=== PATIENT | male | born 1970 ===

== ENCOUNTER 2017-06-08 09:11 | Day surgery (SDC) | payer MEDICARE ==
--- NOTE | 2017-06-08 07:58 | HP ---
DATE OF SURGERY: 06/08/2017 HISTORY OF PRESENT ILLNESS: The patient is a 47 year-old with issues with bowel problems in [facility] seen by Dr. Avendaño. Even more recently he had enlarging lesion on his base of neck, shoulder area as well as a leg lesion and desires excision now at a later date. He is in need of colonoscopy. He has had some chronic bowel problems. PAST MEDICAL HISTORY: He had some developmental delay and bowel issues. PAST SURGICAL HISTORY: He had some surgery for eyelid when he was a child. MEDICATIONS: Reportedly none currently. ALLERGIES: NKDA. FAMILY HISTORY: Heart disease, testicular cancer reportedly. SOCIAL HISTORY: No smoking or alcohol abuse. REVIEW OF SYSTEMS: Chronic bowel problem. Twelve systems reviewed per admission assessment. No chest pain or palpitations other systems negative or noncontributory as above and per preadmission questionnaire. PHYSICAL EXAMINATION: GENERAL: No acute distress. HEENT: Sclerae nonicteric. NECK: No JVD. Base of his neck exophytic lesion of indeterminate origin. CHEST: Equal excursion, nonlabored breathing. CVS: Regular rate and rhythm. ABDOMEN: Soft, nondistended. EXTREMITIES: No significant edema. He has leg lesion of indeterminate etiology. NEURO: Alert, moving extremities grossly symmetrically. IMPRESSION: He has lesion base of neck and leg in need of excision undetermined in origin and enlarging. Risks and benefits explained in detail including but not limited to bleeding or infection, risk of wound dehiscence possibly requiring packing, general risk of aches, pains, burning, numbness, possibility that he may need to have procedure with wide excision. General risk of anesthesia or sedation but not limited to. Consent was obtained. Will proceed with excisional biopsy base of the neck lesion as well as leg lesion as an outpatient. At a later date if he has chronic bowel problems originally seen by Dr. Avendaño in the hospital, I feel he would benefit from colonoscopy. Risks and benefits explained in detail but not limited to bleeding, infection, risk of bowel injury or perforation possibly requiring open procedure, risk of missed or nondiagnosis or incomplete exam possibly requiring barium enema, other studies or procedures, general risk of anesthesia or sedation but not limited to. He understands and agrees to the planned procedure, consent obtained, will proceed with first excision of lesions as outpatient at a later date the colonoscopy.
[2017-06-08] MEDS ORDERED: DIPRIVAN 200 MG/20 ML IV ONE (09:12)
[2017-06-08] MEDS ORDERED: Lactated Ringers 1,000 ML IV SCH (10:00)
[2017-06-08 11:39] VITALS: O2SAT 100
[2017-06-08 12:15] VITALS: PULSE 64
[2017-06-08 12:20] VITALS: BP 132/73
--- NOTE | 2017-06-08 15:38 | OP ---
SURGERY DATE/TIME: 06/08/2017 1044 PREOPERATIVE DIAGNOSIS: History of change in bowel habits, increasing diarrhea, prior history of question internal hernia or volvulus on past hospital visit at [facility], need for colonoscopy. POSTOPERATIVE DIAGNOSES: 1) Somewhat poor prep limiting colon exam. 2) Very tortuous colon. 3) Small internal and external hemorrhoids. 4) Mild colon erythema versus prep irritation evaluate for microscopic colitis. PROCEDURES: Colonoscopy to what appeared to be the cecal area with random cold biopsies of the colon to evaluate for microscopic colitis. SURGEON: Dr. Delano Carrera. ANESTHESIA: MAC. ESTIMATED BLOOD LOSS: Minimal. INDICATIONS: As noted above. Risks and benefits explained in detail but not limited to and consent obtained. DESCRIPTION OF PROCEDURE AND FINDINGS: The patient is taken to the operating room. MAC anesthesia introduced. After official time out and no disagreement with planned procedure, digital rectal exam did not reveal any rectal masses. He did have some internal and external hemorrhoids. Video colonoscope inserted and passed up the tortuous sigmoid, descending and transverse colon. With external pressure and positioning on his back with two staff members applying external pressure, the scope was able to be passed around the ascending colon to the right lower quadrant to what was felt to be probably the cecum. Prep overall was somewhat poor thick in the right colon limiting the exam for small lesions. It was suction irrigated out as well as possible but did limited the exam for small lesions. There were no signs of any large polyps, masses or obstructing lesions. The scope is slowly and carefully withdrawn. He had problems with diarrhea. It was felt as he had some mild erythema of the colon whether this is simple prep irritation versus microscopic colitis cold biopsy taken to evaluate for microscopic colitis. Otherwise there are no signs of any large polyps, masses or obstructing lesions. He had some small internal and external hemorrhoids. There were no signs of any large polyps or obstructing lesions. Again the prep did limit the exam for small lesions. The scope is withdrawn. There was no family or friends available to discuss the findings with out in the waiting area. The patient additionally had a prior barium enema around to the cecum. It did not show any obvious masses but did show that he had a redundant colon.
== END 2017-06-08 12:10 | disposition home or self-care (01) ==
LOC: SDC 09:11
PROVIDERS: ATTEND Surgery
PROC: 0DBP8ZX Excision of Rectum, Via Natural or Artificial Opening Endoscopic, Diagnostic (ICD-10-PCS; principal; 2017-06-08)
PROC: 0DBE8ZX Excision of Large Intestine, Via Natural or Artificial Opening Endoscopic, Diagnostic (ICD-10-PCS; 2017-06-08)
DX: R19.4 Change in bowel habit (principal); R19.7 Diarrhea, unspecified; Q43.8 Other specified congenital malformations of intestine; K64.4 Residual hemorrhoidal skin tags; K64.8 Other hemorrhoids; L53.9 Erythematous condition, unspecified
CPT/HCPCS: 00812; 88305; J2704

== ENCOUNTER 2017-06-15 08:53 | Day surgery (SDC) | payer MEDICARE ==
--- NOTE | 2017-06-15 07:45 | HP ---
DATE OF SURGERY: 06/15/2017 HISTORY OF PRESENT ILLNESS: The patient is a 47 year-old who has nonhealing, enlarging lesions on his leg, base of the neck, shoulder, above the shoulder area enlarging in size and concern about catching these and causing infection. Therefore he desires excisional biopsy with definitive path treatment. He is now in need of excision of these lesions. PAST MEDICAL HISTORY: PAST SURGICAL HISTORY: He had some sort of a procedure at [place] when he was a child. I do not have the report on that. He has got some chronic bowel problems seen originally by Dr. Avendaño. He had a barium enema that showed very redundant colon. He had a colonoscopy that did not show any obvious masses. MEDICATIONS: He has been on some Colace. ALLERGIES: NKDA. FAMILY HISTORY: Heart disease. SOCIAL HISTORY: No smoking or alcohol abuse. REVIEW OF SYSTEMS: Twelve systems reviewed per admission assessment. He has some developmental delay. Chronic constipation. Neoplasm of uncertain behavior on the base of his neck and lower extremity. No chest pain or palpitations other systems negative or noncontributory as above and per preadmission questionnaire. PHYSICAL EXAMINATION: A chronically ill gentleman. GENERAL: No acute distress. HEENT: Sclerae nonicteric. NECK: No JVD. CHEST: Equal excursion, nonlabored breathing. CVS: Regular rate and rhythm. ABDOMEN: Soft. EXTREMITIES: No significant edema. SKIN: He has an enlarging exophytic lesion on his leg as well as the base of his neck that need excision. NEURO: Alert, moving extremities symmetrically. No gross motor deficits noted. 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 Risks and benefits explained in detail including but not limited to bleeding or infection, risk of wound complications or dehiscence possibly packing, general risk of anesthesia sedation, deep venous thrombosis, pulmonary embolism, pneumonia but not limited to. Possibility if any malignancy might need wider excision or other procedures. Consent obtained. We will proceed as an outpatient.
[~2017-06-15 08:53] MED LIST: Lactated Ringers 1,000 ML IV SCH
[2017-06-15] MEDS ORDERED: Ketamine HCl 50 MG/ML IV ONE (08:54)
[2017-06-15] MEDS ORDERED: DIPRIVAN 200 MG/20 ML IV ONE (08:54)
[2017-06-15] MEDS ORDERED: Lactated Ringers 1,000 ML IV ONE ×2 (09:10→09:30)
[2017-06-15] MEDS ORDERED: Sensorcaine 0.25% 10 ML ONE (09:30)
[2017-06-15 12:13] VITALS: O2SAT 99
[2017-06-15 12:24] VITALS: BP 173/96; PULSE 71
--- NOTE | 2017-06-15 14:37 | OP ---
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 PROCEDURES: 1) Excisional biopsy base of the neck exophytic enlarging lesion (approximately 2 cm with margins) with intermediate closure. 2) Excisional biopsy of right leg exophytic lesion (approximately 1.5 cm with margins). SURGEON: Dr. Delano Carrera. CREAM RIPENER: Naveed Carnes, Medical Student III. ANESTHESIA: MAC. ESTIMATED BLOOD LOSS: Minimal. INDICATIONS: As noted above. Risks and benefits explained in detail and not limited to and consent obtained. DESCRIPTION OF PROCEDURE AND FINDINGS: The patient is taken to the operating room. The site had been confirmed and marked in preoperative holding area. Taken to the operating room. Placed in lateral position, appropriate padding positioned. MAC anesthesia introduced per anesthesia choice. Neck and lower extremity prepped and draped in usual sterile fashion. After official time out and no disagreement with planned procedure, marking out to normal appearing skin accomplished. Dissecting down to subcutaneous tissue underneath this lesion this resulted in about a 4 to 4.5 cm long spindle-shaped excision. The specimen itself was about 2 cm with margins. Dissection carried down to normal appearing subcutaneous tissue beneath and the specimen passed off. The wound is closed with interrupted. The edges were mobilized back towards the midline with interrupted deep and superficial subcu of 3-0 Vicryl. Skin closed with 4-0 Vicryl and some interrupted 0 Prolene used given the location of the base of the neck with interrupted 3-0 Prolene. Steri-strips and sterile dressing applied. The patient tolerated this part of the procedure well. Attention was then turned to the leg lesion. This was more exophytic, more narrower base. Dissecting out to normal appearing skin on either side of this in transverse fashion. Dissection carried down deep to normal appearing subcutaneous tissue. Specimen passed off and measured about 1.5 cm. The wound had good hemostasis with pin point cautery. It was then closed with interrupted 4-0 Vicryl. Some glue and sterile pressure dressing applied. The procedure tolerated the procedure well. There were no immediate complications. Findings discussed with the guardian out in the waiting area.
== END 2017-06-15 12:35 | disposition home or self-care (01) ==
LOC: SDC 08:53
PROVIDERS: ATTEND Surgery
PROC: 0JQ50ZZ Repair Left Neck Subcutaneous Tissue and Fascia, Open Approach (ICD-10-PCS; principal; 2017-06-15)
PROC: 0JQ40ZZ Repair Right Neck Subcutaneous Tissue and Fascia, Open Approach (ICD-10-PCS; 2017-06-15)
PROC: 0HB4XZZ Excision of Neck Skin, External Approach (ICD-10-PCS; 2017-06-15)
PROC: 0HBKXZZ Excision of Right Lower Leg Skin, External Approach (ICD-10-PCS; 2017-06-15)
DX: D36.11 Benign neoplasm of peripheral nerves and autonomic nervous system of face, head, and neck (principal); D23.9 Other benign neoplasm of skin, unspecified; R20.8 Other disturbances of skin sensation; L98.9 Disorder of the skin and subcutaneous tissue, unspecified
CPT/HCPCS: 00300; 00400; 88304; 88305; J2704